=== PATIENT | female | born 1965 | race Caucasian/White ===

== ENCOUNTER 2019-02-27 12:10 | Outpatient (CLI) | payer OTHER ==
--- NOTE | 2019-03-06 16:41 | MMO ---
Bilateral MAMMO Bilat Screen [facility]. CLINICAL HISTORY: Patient is 53 years old and is seen for screening. The patient has no family history of breast cancer. The patient has no personal history of cancer. VIEWS: The views performed were: bilateral craniocaudal with tomosynthesis and bilateral mediolateral oblique with tomosynthesis. FILMS COMPARED: The present examination has been compared to prior imaging studies performed at [facility] on 08/10/2013, 08/24/2013 and 04/09/2014. This study has been interpreted with the assistance of computer-aided detection. MAMMOGRAM FINDINGS: There are scattered fibroglandular densities. There are two stable nodules seen in the right breast. There are no suspicious masses, suspicious calcifications, or new areas of architectural distortion. IMPRESSION: THERE IS NO MAMMOGRAPHIC EVIDENCE OF MALIGNANCY. A ROUTINE FOLLOW-UP MAMMOGRAM IN 1 YEAR IS RECOMMENDED. THE RESULTS OF THIS EXAM WERE SENT TO THE PATIENT. ACR BI-RADS Category 2 - Benign finding MAMMOGRAPHY NOTE: 1. A negative mammogram report should not delay a biopsy if a dominant of clinically suspicious mass is present. 2. Approximately 10% to 15% of breast cancers are not detected by mammography. 3. Adenosis and dense breasts may obscure an underlying neoplasm. Reported by: SAMANTHA SANTANA MD Electonically Signed: [id number]
== END 2019-02-27 12:11 | disposition home or self-care (01) ==
LOC: BICMAMMO 12:10
PROVIDERS: ATTEND Family Medicine
DX: Z12.31 Encounter for screening mammogram for malignant neoplasm of breast (principal)
CPT/HCPCS: 77063; 77067

== ENCOUNTER 2019-12-22 15:28 | Emergency (ER) | payer OTHER ==
[~2019-12-22 15:28] MED LIST: Iopamidol-370 76% 500 ML 1 ML ONE
[2019-12-22 16:27] LABS: #Basophils 0.1 thou/uL (0.0-0.2); #Eosinphils 0.1 thou/uL (0.0-0.7); #Lymphocytes 3.2 thou/uL (1.20-3.40); #Monocytes 0.4 thou/uL (0.11-0.59); #Neutrophils 3.8 thou/uL (1.40-6.50); %Basophils 0.9 % (0.0-1.0); %Eosinophils 1.9 % (0.0-10.0); %Neutrophils 50.1 % (42.0-75.0); Mean Corpuscular HGB CONC 32.1 g/dL (32.0-36.0); Mean Corpuscular Hemoglobin 29.3 pg (27.0-31.0); Mean Corpuscular Volume 91.1 fL (78.0-98.0); Mean Platelet Volume 9.7 fL (7.4-10.4); Platelet Count 260 thou/uL (130-400); Red Blood Cell (RBC) Count 5.14 mill/uL (4.20-5.40); White Blood Cell (WBC) Count 7.6 thou/uL (4.8-10.8)
[2019-12-22 16:42] LABS: Bilirubin Negative (Negative); Blood, Urine Negative (Negative); Clarity Clear (Clear); Glucose, Urine (Dipstick) Normal (Negative); Ketone, Urine Negative (Negative); Leukocyte Negative Leu/uL (Negative); Nitrite Negative (Negative); Protein, Urine (Dipstick) Negative (Neg-Trace); Specific Gravity, Urine 1.007 (1.002-1.036); Urobilinogen Normal mg/dL (Less than 2); pH, Urine 6.5 (5.0-9.0)
[2019-12-22 17:02] LABS: ALT (SGPT) 36 U/L (8-55); AST (SGOT) 27 U/L (5-34); Albumin 4.6 g/dL (3.5-5.0); Alkaline Phosphatase 101 U/L (40-110); Anion Gap 17 mmol/L (10-20); BUN (Urea Nitrogen) 9 mg/dL (9.8-20.1); Bilirubin, Total 0.2 mg/dL (0.2-1.2); Calc. Creatinine Clearance 0 mL/min (70-130); Calcium 10.1 mg/dL (7.8-10.44); Carbon Dioxide 23 mmol/L (22-29); Chloride 104 mmol/L (98-107); Estimated GFR-MDRD 80; Globulin 3.3 g/dL (2.4-3.5); Glucose 83 mg/dL (70-105); Lipase 12 U/L (8-78); Potassium 4.3 mmol/L (3.5-5.1); Protein, Total 7.9 g/dL (6.0-8.3); Sodium 140 mmol/L (136-145)
[2019-12-22] MEDS ORDERED: Pantoprazole 40 MG VIAL ONE (17:12)
--- NOTE | 2019-12-22 17:47 | CT ---
CT Abdomen Pelvis W Con History: Abdominal pain with rectal bleeding Comparison: None. Findings: Lung bases are clear. No pericardial effusion. Flash filling hemangioma within hepatic segm ent 8. Incidental note is made of a small splenule. The spleen, pancreas, adrenal glands are normal. No hydronephrosis. The appendix is visualized and is normal. No dilated loops of large or small bowel. The aortoiliac contour is nonaneurysmal. No retroperitoneal periaortic adenopathy. No acute osseous abnormality. No suspicious osteolytic or osteoblastic lesion. Impression: No acute inflammatory process in the abdomen or pelvis.
== END 2019-12-22 18:30 | disposition home or self-care (01) ==
LOC: ERS 15:28
DX: K62.5 Hemorrhage of anus and rectum (principal)
CPT/HCPCS: 74177; 80053; 81003; 83690; 85025; 86850; 86900; 86901; 96374; C9113; Q9967

== ENCOUNTER 2021-04-18 07:59 | Outpatient (CLI) | payer OTHER | END 2021-04-18 08:00 | disposition home or self-care (01) | LOC: BICMAMMO 07:59 | PROVIDERS: ATTEND Family Medicine | DX: Z12.31 Encounter for screening mammogram for malignant neoplasm of breast (principal) | CPT/HCPCS: 77063; 77067 ==

== ENCOUNTER 2021-10-07 10:21 | Outpatient (CLI) | payer OTHER | END 2021-10-07 10:22 | disposition home or self-care (01) | LOC: BICRAD 10:21 | PROVIDERS: ATTEND Family Medicine | DX: M25.561 Pain in right knee (principal) ==